=== PATIENT | male | born 1995 | race Two or more races ===

== ENCOUNTER 2017-07-05 13:07 | Inpatient (IN) | payer OTHER ==
[~2017-07-05] VITALS: Ht 165.1 cm; Wt 52.5 kg
[2017-07-05] MEDS ORDERED: DEXAMETHASONE 4 MG/ML, 1ML IV ONE (14:00)
[2017-07-05] MEDS ORDERED: DEXAMETHASONE 12 MG in SODIUM CHLORIDE 0.9% 50 ML IV ONE (14:00)
[2017-07-05] MEDS ORDERED: AMPICILLIN/SULBACTAM 3 GM in SODIUM CHLORIDE 0.9% 100 ML IV ONE (14:00)
[2017-07-05] MEDS ORDERED: SODIUM CHLORIDE FLUSH 10ML SYR IVF ONE (14:00)
[2017-07-05] MEDS ORDERED: SODIUM CHLORIDE 0.9% 1,000ML IVBOLUS ONE (14:00)
[2017-07-05 14:28] LABS: HEMATOCRIT 44.8 % (39.2-51.8); HEMOGLOBIN 14.8 g/dL (13.7-18.0); WHITE BLOOD COUNT 9.3 x10^3/uL (4.5-13.2)
[2017-07-05 14:38] LABS: BLOOD UREA NITROGEN 13 mg/dL (7-18)
[2017-07-05] MEDS ORDERED: OMNIPAQUE 350 MG/ML, 75ML BOTTLE ONE (15:18)
[2017-07-05] MEDS ORDERED: ACETAMINOPHEN 325 MG TABLET PO PRN (16:00)
[2017-07-05] MEDS ORDERED: BISACODYL 10 MG SUPP PR PRN (16:00)
[2017-07-05] MEDS ORDERED: morphine SULFATE 10 MG/ML, 1ML IVPush PRN (16:00)
[2017-07-05] MEDS ORDERED: LABETALOL 5MG/ML, 20ML IVPush PRN (16:00)
[2017-07-05] MEDS ORDERED: ONDANSETRON ODT 4 MG PO PRN (16:00)
[2017-07-05] MEDS ORDERED: POLYETHYLENE GLYCOL 17 GM PACKET PO PRN (16:00)
[2017-07-05] MEDS ORDERED: DOCUSATE 100 MG CAPSULE PO PRN (16:00)
[2017-07-05] MEDS ORDERED: ONDANSETRON 2MG/ML, 2ML IVPush PRN (16:00)
[2017-07-05] MEDS ORDERED: LIDOCAINE 1%, 20ML ONE (16:16)
[2017-07-05 20:30] VITALS: BP 118/70
[2017-07-05] MEDS: AMPICILLIN/SULBACTAM 3 GM in SODIUM CHLORIDE 0.9% 100 ML IV SCH (23:19)
[2017-07-06 02:45] VITALS: BP 104/64
[2017-07-06 05:53] LABS: HEMATOCRIT 41.2 % (39.2-51.8); HEMOGLOBIN 13.8 g/dL (13.7-18.0); WHITE BLOOD COUNT 8.2 x10^3/uL (4.5-13.2)
[2017-07-06 05:58] LABS: BLOOD UREA NITROGEN 14 mg/dL (7-18)
[2017-07-06 08:00] VITALS: BP 121/74
[2017-07-06] MEDS: AMPICILLIN/SULBACTAM 3 GM in SODIUM CHLORIDE 0.9% 100 ML IV SCH ×3 (08:29→23:20)
[2017-07-06 14:00] VITALS: BP 116/69
[2017-07-06 19:10] VITALS: BP 99/61
[2017-07-07 01:35] VITALS: BP 106/67
[2017-07-07 07:16] VITALS: BP 115/69
[2017-07-07] MEDS: AMPICILLIN/SULBACTAM 3 GM in SODIUM CHLORIDE 0.9% 100 ML IV SCH ×2 (08:01→16:38)
[2017-07-07 14:15] VITALS: BP 109/73
[2017-07-07 21:31] VITALS: BP 121/74
[2017-07-08 00:27] VITALS: BP 111/73
[2017-07-08] MEDS: AMPICILLIN/SULBACTAM 3 GM in SODIUM CHLORIDE 0.9% 100 ML IV SCH ×2 (00:27→08:53)
[2017-07-08 07:24] VITALS: BP 113/68
[2017-07-08] MEDS ORDERED: AMOX1TAB64 PO (14:20)
[2017-07-08 15:30] VITALS: BP 110/65
== END 2017-07-08 15:52 | disposition home or self-care (01) | DRG 155 ==
LOC: ED 13:52 → EDIP 14:34 → 3NE 17:52
PROVIDERS: ADMIT Internal Medicine; ATTEND Family Medicine
PROC: 099K0ZZ Drainage of Nasal Mucosa and Soft Tissue, Open Approach (ICD-10-PCS; principal; 2017-07-05)
DX: J34.0 Abscess, furuncle and carbuncle of nose (principal); L03.211 Cellulitis of face; Z80.3 Family history of malignant neoplasm of breast
CPT/HCPCS: 36415; 70487; 80048; 82040; 85025; 87040; 96365; J0295; J1100; Q9967; J7030